=== PATIENT | male | born 1985 | race African-American/Black ===

== ENCOUNTER 2017-02-05 10:30 | Emergency (ER) | payer OTHER ==
[2017-02-05] MEDS ORDERED: Tetracaine HCl 0.5% Ophth Soln 2 ML Bottle ONE (11:03)
[2017-02-05] MEDS ORDERED: Fluorescein Opthalmic Strip ONE (11:03)
== END 2017-02-05 11:34 | disposition home or self-care (01) ==
LOC: NAV ERS 10:30
DX: T15.02XA Foreign body in cornea, left eye, initial encounter (principal); F17.210 Nicotine dependence, cigarettes, uncomplicated; X58.XXXA Exposure to other specified factors, initial encounter
CPT/HCPCS: 99283

== ENCOUNTER 2017-09-09 10:30 | Emergency (ER) | payer OTHER ==
--- NOTE | 2017-09-09 11:06 | RAD ---
3 VIEWS LEFT FOOT: Date: 09/09/17 HISTORY: Non-traumatic pain. COMPARISON: None. FINDINGS: There is mid foot soft tissue swelling. Lisfranc alignment is maintained. No fracture. Joint spaces are preserved. No radiopaque foreign bodies. IMPRESSION: 1. Nonspecific soft tissue swelling in the mid foot. 2. No fracture. POS: [facility]
== END 2017-09-09 11:21 | disposition home or self-care (01) ==
LOC: NAV ERS 10:30
DX: L03.116 Cellulitis of left lower limb (principal); B35.3 Tinea pedis; F17.210 Nicotine dependence, cigarettes, uncomplicated

== ENCOUNTER 2022-02-01 11:53 | Outpatient (CLI) | payer OTHER | END 2022-02-01 11:54 | disposition home or self-care (01) | LOC: NAV RAD 11:53 | PROVIDERS: ATTEND Nurse Practitioner Family | DX: M54.50 Low back pain, unspecified (principal) | CPT/HCPCS: 72100; 72170 ==

== ENCOUNTER 2022-07-26 22:51 | Emergency (ER) | payer OTHER ==
[2022-07-27] MEDS ORDERED: AMOXicillin 250 MG CAP ONE (00:01)
[2022-07-27] MEDS ORDERED: Ibuprofen 800 MG TAB ONE (00:01)
== END 2022-07-27 00:10 | disposition home or self-care (01) ==
LOC: NAV ERS 22:51
DX: I88.9 Nonspecific lymphadenitis, unspecified (principal); F17.290 Nicotine dependence, other tobacco product, uncomplicated
CPT/HCPCS: 99283

== ENCOUNTER 2022-10-19 07:44 | Emergency (ER) | payer OTHER ==
[2022-10-19] MEDS ORDERED: Ibuprofen 200 MG TAB ONE (08:33)
== END 2022-10-19 09:55 | disposition home or self-care (01) ==
LOC: NAV ERS 07:44
DX: J10.1 Influenza due to other identified influenza virus with other respiratory manifestations (principal); F17.290 Nicotine dependence, other tobacco product, uncomplicated
CPT/HCPCS: 87081; 87430; 87804; 99283

== ENCOUNTER 2023-11-18 03:11 | Emergency (ER) | payer OTHER ==
[2023-11-18] MEDS ORDERED: Pantoprazole 40 MG VIAL ONE (03:55)
[2023-11-18] MEDS ORDERED: Ondansetron PF 4 MG/2 ML Vial ONE (03:55)
[2023-11-18] MEDS ORDERED: Ketorolac Tromethamine 30 MG (1 mL) VIAL ONE (03:55)
[2023-11-18 04:18] LABS: #Eosinphils 0.1 thou/uL (0.0-0.7); #Lymphocytes 2.2 thou/uL (1.20-3.40); #Monocytes 0.4 thou/uL (0.11-0.59); #Neutrophils 6.1 thou/uL (1.40-6.50); %Basophils 0.3 % (0.0-1.0); %Eosinophils 0.6 % (0.0-10.0); %Lymphocytes 24.9 % (21.0-51.0); %Monocytes 4.7 % (0.0-10.0); %Neutrophils 69.5 % (42.0-75.0); Hematocrit 37.1 % (42.0-52.0); Hemoglobin 12.2 g/dL (14.0-18.0); Mean Corpuscular Hemoglobin 29.9 pg (27.0-31.0); Mean Corpuscular Volume 90.7 fl (78.0-98.0); Mean Platelet Volume 6.2 fL (7.4-10.4); Platelet Count 244 10x3/uL (130-400); Red Blood Cell (RBC) Count 4.09 mill/uL (4.70-6.10); White Blood Cell (WBC) Count 8.8 10x3/uL (4.8-10.8)
[2023-11-18 04:31] LABS: Acetaminophen Less than 10 mcg/mL (10.0-30.0); Lipase 74 U/L (8-78); Salicylate Less than 8.0 mg/dL (15.0-30.0)
[2023-11-18 04:33] LABS: ALT (SGPT) 35 U/L (8-55); AST (SGOT) 34 U/L (5-34); Albumin 3.9 g/dL (3.5-5.0); Alkaline Phosphatase 75 U/L (40-110); Anion Gap 12 mmol/L (10-20); BUN (Urea Nitrogen) 8 mg/dL (8.9-20.6); Bilirubin, Total 0.3 mg/dL (0.2-1.2); Calc. Creatinine Clearance 0 mL/min (70-130); Calcium 8.7 mg/dL (7.8-10.44); Carbon Dioxide 24 mmol/L (22-29); Chloride 109 mmol/L (98-107); Estimated GFR 115; Globulin 3.8 g/dL (2.4-3.5); Glucose 109 mg/dL (70-105); Potassium 3.8 mmol/L (3.5-5.1); Protein, Total 7.7 g/dL (6.0-8.3); Sodium 141 mmol/L (136-145)
[2023-11-18 04:36] LABS: Alcohol Less than 10.0 mg/dL (Less than 10)
[2023-11-18 04:37] LABS: Bilirubin Negative (Negative); Blood, Urine Negative (Negative); Clarity Clear (Clear); Glucose, Urine (Dipstick) Negative (Negative); Ketone, Urine Negative (Negative); Leukocyte Negative (Negative); Nitrite Negative (Negative); Protein, Urine (Dipstick) Negative (Neg-Trace); pH, Urine 7.5 (5.0-9.0)
[2023-11-18] MEDS ORDERED: Cipro 250 MG TAB ONE (07:02)
[2023-11-18] MEDS ORDERED: metroNIDAZOLE 500 MG TAB ONE (07:02)
== END 2023-11-18 07:16 | disposition home or self-care (01) ==
LOC: NAV ERS 03:11
DX: K81.9 Cholecystitis, unspecified (principal); F17.290 Nicotine dependence, other tobacco product, uncomplicated; F17.200 Nicotine dependence, unspecified, uncomplicated
CPT/HCPCS: 71046; 74176; 80053; 80307; 81001; 83690; 85025; 96374; 96375; C9113; J1885; J2405

== ENCOUNTER 2024-04-26 06:32 | Emergency (ER) | payer OTHER ==
[2024-04-26 07:32] LABS: #Basophils 0.1 thou/uL (0.0-0.2); #Eosinphils 0.1 thou/uL (0.0-0.7); #Lymphocytes 2.5 thou/uL (1.20-3.40); #Monocytes 0.7 thou/uL (0.11-0.59); #Neutrophils 10.6 thou/uL (1.40-6.50); %Basophils 0.7 % (0.0-1.0); %Eosinophils 0.6 % (0.0-10.0); %Lymphocytes 17.9 % (21.0-51.0); %Monocytes 4.8 % (0.0-10.0); Hematocrit 40.7 % (42.0-52.0); Hemoglobin 12.7 g/dL (14.0-18.0); Mean Corpuscular HGB CONC 31.3 g/dL (32.0-36.0); Mean Corpuscular Hemoglobin 28.4 pg (27.0-31.0); Mean Corpuscular Volume 90.9 fl (78.0-98.0); Mean Platelet Volume 5.4 fL (7.4-10.4); Platelet Count 233 10x3/uL (130-400); RBC Distribution Width 13.6 % (11.5-14.5); Red Blood Cell (RBC) Count 4.48 mill/uL (4.70-6.10)
[2024-04-26 07:45] LABS: ALT (SGPT) 24 U/L (8-55); AST (SGOT) 19 U/L (5-34); Albumin 4.1 g/dL (3.5-5.0); Alkaline Phosphatase 80 U/L (40-110); Anion Gap 16 mmol/L (10-20); BUN (Urea Nitrogen) 13 mg/dL (8.9-20.6); Bilirubin, Total 0.3 mg/dL (0.2-1.2); Calc. Creatinine Clearance 0 mL/min (70-130); Calcium 9.9 mg/dL (7.8-10.44); Carbon Dioxide 23 mmol/L (22-29); Chloride 104 mmol/L (98-107); Estimated GFR 106; Glucose 91 mg/dL (70-105); Lipase 80 U/L (8-78); Potassium 3.8 mmol/L (3.5-5.1); Protein, Total 8.1 g/dL (6.0-8.3); Sodium 139 mmol/L (136-145); Troponin I Less than 0.010 ng/mL (< 0.028)
[2024-04-26] MEDS ORDERED: Lidocaine 2% Viscous 100 ML BOTTLE ONE (07:46)
[2024-04-26] MEDS ORDERED: Sodium Chloride 0.9% 1,000 ML ONE (07:47)
[2024-04-26] MEDS ORDERED: Mag-Al Plus 1200/1200/120 MG (30 mL) UDCUP ONE (07:47)
[2024-04-26] MEDS ORDERED: Famotidine/PF 20 mg/2ml Vial ONE (07:47)
[2024-04-26 08:25] LABS: Bilirubin Negative (Negative); Blood, Urine Trace (Negative); Clarity Clear (Clear); Glucose, Urine (Dipstick) Negative (Negative); Ketone, Urine Negative (Negative); Leukocyte Negative (Negative); Nitrite Negative (Negative); Protein, Urine (Dipstick) Negative (Neg-Trace); Specific Gravity, Urine 1.025 (1.005-1.030); Urobilinogen 0.2 mg/dL (Less than 2)
[2024-04-26 08:27] LABS: Bacteria/HPF None Seen HPF (None Seen); CAUTI Indications for Culture Dysuria,urgency,freq; RBC/HPF None Seen HPF (0-3); Squamous Epithelial 0-3 HPF (0-3); WBC/HPF None Seen HPF (0-3)
[2024-04-26 08:28] LABS: Urine Culture Reflex No No
[2024-04-26] MEDS ORDERED: Iopamidol 370 76% 100 ML VIAL ONE (09:00)
== END 2024-04-26 08:35 | disposition home or self-care (01) ==
LOC: NAV ERS 06:32
DX: R10.10 Upper abdominal pain, unspecified (principal); F17.290 Nicotine dependence, other tobacco product, uncomplicated
CPT/HCPCS: 74177; 80053; 81001; 83690; 84484; 85025; 93005; 96361; 96374; J7050; Q9967; S0028

== ENCOUNTER 2024-09-16 21:50 | Emergency (ER) | payer OTHER ==
[~2024-09-16 21:50] MED LIST: Iopamidol 370 76% 100 ML VIAL ONE
[2024-09-16] MEDS ORDERED: Ondansetron PF 4 MG/2 ML Vial ONE (22:12)
[2024-09-16] MEDS ORDERED: Morphine 2 MG/ML VIAL ONE ×2 (22:12→22:49)
[2024-09-16] MEDS ORDERED: Sodium Chloride 0.9% 1,000 ML ONE (22:13)
[2024-09-16] MEDS ORDERED: Pantoprazole 40 MG VIAL ONE (22:13)
[2024-09-16 22:14] LABS: #Basophils 0.1 thou/uL (0.0-0.2); #Eosinophils 0.1 thou/uL (0.0-0.7); #Monocytes 0.9 thou/uL (0.11-0.59); %Basophils 0.5 % (0.0-1.0); %Eosinophils 0.8 % (0.0-10.0); %Lymphocytes 24.6 % (21.0-51.0); %Monocytes 7.7 % (0.0-10.0); %Neutrophils 66.5 % (42.0-75.0); Hematocrit 45.8 % (42.0-52.0); Hemoglobin 15.3 g/dL (14.0-18.0); Mean Corpuscular HGB CONC 33.4 g/dL (32.0-36.0); Mean Corpuscular Hemoglobin 29.9 pg (27.0-31.0); Mean Corpuscular Volume 89.4 fl (78.0-98.0); Mean Platelet Volume 6.4 fL (7.4-10.4); Platelet Count 330 10x3/uL (130-400); RBC Distribution Width 12.7 % (11.5-14.5); Red Blood Cell (RBC) Count 5.12 mill/uL (4.70-6.10)
[2024-09-16 22:29] LABS: ALT (SGPT) 26 U/L (8-55); AST (SGOT) 26 U/L (5-34); Albumin 3.9 g/dL (3.5-5.0); Alkaline Phosphatase 81 U/L (40-110); Anion Gap 11 mmol/L (10-20); BUN (Urea Nitrogen) 7 mg/dL (8.9-20.6); Bilirubin, Total 0.3 mg/dL (0.2-1.2); Calc. Creatinine Clearance 0 mL/min (70-130); Calcium 9.7 mg/dL (7.8-10.44); Carbon Dioxide 23 mmol/L (22-29); Chloride 103 mmol/L (98-107); Estimated GFR 105; Globulin 4.4 g/dL (2.4-3.5); Glucose 110 mg/dL (70-105); Lipase 98 U/L (8-78); Potassium 3.5 mmol/L (3.5-5.1); Protein, Total 8.3 g/dL (6.0-8.3); Sodium 133 mmol/L (136-145)
[2024-09-17] MEDS ORDERED: Sucralfate 1 GM TAB ONE (00:22)
[2024-09-17] MEDS ORDERED: Ondansetron PF 4 MG/2 ML Vial ONE (00:22)
[2024-09-17] MEDS ORDERED: Mag-Al Plus 1200/1200/120 MG (30 mL) UDCUP ONE (00:23)
== END 2024-09-17 03:05 | disposition home or self-care (01) ==
LOC: NAV ERS 21:50
DX: K29.70 Gastritis, unspecified, without bleeding (principal); I10 Essential (primary) hypertension; F17.210 Nicotine dependence, cigarettes, uncomplicated; F17.290 Nicotine dependence, other tobacco product, uncomplicated
CPT/HCPCS: 74177; 80053; 83690; 85025; 96374; 96375; 96376; J2272; J2405; J2470; J7030; Q9967

== ENCOUNTER 2024-11-25 09:21 | Emergency (ER) | payer OTHER ==
[2024-11-25] MEDS ORDERED: Ketorolac Tromethamine 60 MG/2 ML VIAL ONE (09:50)
[2024-11-25] MEDS ORDERED: Orphenadrine Citrate 60 MG/2 ML VIAL ONE (09:51)
== END 2024-11-25 10:13 | disposition home or self-care (01) ==
LOC: NAV ERS 09:21
DX: M54.50 Low back pain, unspecified (principal); F17.210 Nicotine dependence, cigarettes, uncomplicated
CPT/HCPCS: 96372; 99283; J1885; J2360

== ENCOUNTER 2025-07-04 00:37 | Emergency (ER) | payer SELFPAY ==
[2025-07-04] MEDS ORDERED: Ondansetron PF 4 MG/2 ML Vial ONE (00:53)
[2025-07-04 01:06] LABS: #Basophils 0.1 thou/uL (0.0-0.2); #Eosinophils 0.5 thou/uL (0.0-0.7); #Lymphocytes 5.9 thou/uL (1.20-3.40); #Monocytes 0.8 thou/uL (0.11-0.59); #Neutrophils 6.0 thou/uL (1.40-6.50); %Basophils 1.1 % (0.0-1.0); %Eosinophils 3.8 % (0.0-10.0); %Lymphocytes 44.2 % (21.0-51.0); %Monocytes 6.2 % (0.0-10.0); %Neutrophils 44.7 % (42.0-75.0); Hematocrit 45.9 % (42.0-52.0); Hemoglobin 15.5 g/dL (14.0-18.0); Mean Corpuscular Hemoglobin 30.4 pg (27.0-31.0); Mean Corpuscular Volume 89.7 fl (78.0-98.0); Platelet Count 275 10x3/uL (130-400); Red Blood Cell (RBC) Count 5.12 mill/uL (4.70-6.10); White Blood Cell (WBC) Count 13.4 10x3/uL (4.8-10.8)
[2025-07-04 01:25] LABS: ALT (SGPT) 18 U/L (Less than 45); AST (SGOT) 31 U/L (11-34); Albumin 4.0 g/dL (3.1-4.5); Alkaline Phosphatase 61 U/L (40-110); Anion Gap 16 mmol/L (10-20); BUN (Urea Nitrogen) 10 mg/dL (8.9-20.6); Bilirubin, Total 0.2 mg/dL (0.3-1.2); Calc. Creatinine Clearance 0 mL/min (70-130); Calcium 8.9 mg/dL (7.8-10.44); Carbon Dioxide 19 mmol/L (22-29); Chloride 108 mmol/L (98-107); Globulin 3.7 g/dL (2.4-3.5); Glucose 111 mg/dL (70-105); Lipase 123 U/L (8-78); Potassium 4.7 mmol/L (3.5-5.1); Sodium 138 mmol/L (136-145)
[2025-07-04] MEDS ORDERED: HYDROcodone/Acetaminophen 10/325 mg Tablet ONE (02:22)
== END 2025-07-04 02:35 | disposition home or self-care (01) ==
LOC: NAV ERS 00:37
DX: K85.90 Acute pancreatitis without necrosis or infection, unspecified (principal); F17.210 Nicotine dependence, cigarettes, uncomplicated
CPT/HCPCS: 80053; 83690; 85025; 96361; 96372; 96374; 96375; J2270; J2405; J7030

== ENCOUNTER 2025-10-20 21:55 | Emergency (ER) | payer OTHER, SELFPAY ==
[2025-10-20] MEDS ORDERED: Mag-Al Plus 1200/1200/120 MG (30 mL) UDCUP ONE (22:54)
[2025-10-20 23:12] LABS: Glucose, Urine (Dipstick) Negative (Negative); Hematocrit 46.3 % (42.0-52.0); Hemoglobin 16.5 g/dL (14.0-18.0); Leukocyte Negative (Negative); Mean Corpuscular Hemoglobin 31.4 pg (27.0-31.0); Mean Corpuscular Volume 88.2 fl (78.0-98.0); Platelet Count 257 10x3/uL (130-400); Protein, Urine (Dipstick) Negative (Neg-Trace); Red Blood Cell (RBC) Count 5.25 mill/uL (4.70-6.10); Specific Gravity, Urine 1.020 (1.005-1.030); White Blood Cell (WBC) Count 12.4 10x3/uL (4.8-10.8)
[2025-10-20 23:17] LABS: Bacteria/HPF Rare-Few HPF (None Seen); CAUTI Indications for Culture Pelvic or flank pain; RBC/HPF 0-3 HPF (0-3); WBC/HPF 0-3 HPF (0-3)
[2025-10-20 23:18] LABS: Urine Culture Reflex No No
[2025-10-20] MEDS ORDERED: Ondansetron PF 4 MG/2 ML Vial ONE (23:18)
[2025-10-20 23:23] LABS: Troponin I Less than 0.010 ng/mL (< 0.028)
[2025-10-20 23:24] LABS: MDiff Complete? YES; Platelet Adequacy Comment Appears Adequate; Target Cells SLIGHT = 2-5 cells (100X) (0-1/hpf)
[2025-10-20 23:26] LABS: ALT (SGPT) 22 U/L (Less than 45); AST (SGOT) 28 U/L (11-34); Albumin 3.9 g/dL (3.1-4.5); Alkaline Phosphatase 67 U/L (40-110); Anion Gap 18 mmol/L (10-20); BUN (Urea Nitrogen) 11 mg/dL (8.9-20.6); Bilirubin, Total 0.4 mg/dL (0.3-1.2); Calc. Creatinine Clearance 0 mL/min (70-130); Calcium 9.8 mg/dL (7.8-10.44); Carbon Dioxide 22 mmol/L (22-29); Chloride 104 mmol/L (98-107); Globulin 3.6 g/dL (2.4-3.5); Glucose 92 mg/dL (70-105); Lipase 100 U/L (8-78); Potassium 4.7 mmol/L (3.5-5.1); Sodium 139 mmol/L (136-145)
[2025-10-21] MEDS ORDERED: Pantoprazole 40 MG VIAL ONE (00:48)
[2025-10-21 01:17] LABS: Cocaine Metabolite Screen Negative (Negative); THC/Cannabinoid Screen Negative (Negative); Tricyclic Screen Negative (Negative)
== END 2025-10-21 05:25 | disposition short-term general hospital (02) ==
LOC: NAV ERS 21:55
DX: K81.0 Acute cholecystitis (principal); I10 Essential (primary) hypertension; F17.210 Nicotine dependence, cigarettes, uncomplicated
CPT/HCPCS: 74177; 80053; 80306; 81001; 83690; 84484; 85025; 93005; 96361; 96374; 96375; J2270; J2405; J2470; J2543; J7030; Q0162